=== PATIENT | female | born 1950 | race Two or more races ===

== ENCOUNTER 2017-07-23 18:00 | Emergency (ER) | payer MEDICARE ==
[~2017-07-23] VITALS: Ht 162.6 cm; Wt 68.0 kg
[2017-07-23 18:15] VITALS: BP 164/78
[2017-07-23] MEDS ORDERED: Ketorolac 30mg Inj IV ONE (18:30)
--- NOTE | 2017-07-23 19:03 | Diagnostic Imaging Report ---
EXAM: XR Lumbar Spine, 2 or 3 Views CLINICAL HISTORY: PAIN TECHNIQUE: Frontal and lateral views of the lumbar spine. COMPARISON: No relevant prior studies available. FINDINGS: Vertebrae: 5 [id number] lumbar vertebral segments. Mild left convex lumbar scoliotic curvature. Grade 1 retrolisthesis of L4 relative to L5 with approximately 6 mm offset. Lumbar vertebral body heights are maintained. Disc spaces: Multilevel degenerative changes with disc space narrowing and endplate osteophytes, most prominent at L4-5. Soft tissues: Unremarkable. IMPRESSION: 1. Mild left convex lumbar scoliotic curvature. 2. Grade 1 retrolisthesis of L4 relative to L5 with approximately 6 mm offset. 3. Multilevel degenerative changes with disc space narrowing and endplate osteophytes, most prominent at L4-5.
--- NOTE | 2017-07-23 19:14 | Emergency Room Report ---
History of Present Illness General Chief Complaint: Back Pain-No Injury Source: Patient Present Illness HPI The patient presents with left-sided pain that started her lower back and radiates down her leg. This began in February. It's worse when she stands up and tries to walk. It's better when she lays down and also sits down. She's been seen in [place] multiple times and given prescriptions for Naprosyn, vitamins and she said antibiotics however she is uncertain about this. She denies any fevers or chills. There is no weakness except that when she has the pain she has difficulty weightbearing on that side. No blood thinners, recent trauma, saddle numbness, incontinence, oncologic problems. She rates the pain 9 /10 when she stands or walks, aching. No imaging has been done. She was going to have imaging, however, this was cancelled after a bowel prep. There was some concern over abnormal LFTs and there was a plan for evaluation of her liver. There has been some constipation. She is reluctant to take medicine for this. She is being treated for hypertension. She denies any recent trauma. When she was taking Naprosyn she started having dyspepsia. No fevers, chest pain, dyspnea, calf pain or swelling. NO NVD, dysuria, rashes , headache. Allergies: Coded Allergies: No Known Allergies (Unverified , 07/23/17) Patient History Past Medical History: see triage record Social History: Denies: smoking, alcohol use Social History Narrative here with family Reviewed Nursing Documentation: PMH: Agreed; PSxH: Agreed Nursing Documentation-PM Past Medical History: No History, Except For Hx Hypertension: Yes Review of Systems All Other Systems: negative except mentioned in HPI Physical Exam Vital Signs Date Time Temp Pulse Resp B/P (MAP) Pulse Ox O2 Delivery O2 Flow Rate FiO2 07/23/17 18:04 98.1 86 16 164/78 98 Room Air 98.1 Sp02 EP Interpretation: reviewed, normal General Appearance: well appearing, no apparent distress, GCS 15 Head: normocephalic Eyes: bilateral eye normal inspection, bilateral eye PERRL ENT: moist mucus membranes Neck: supple Respiratory: lungs clear, normal breath sounds Cardiovascular #1: regular rate, rhythm Cardiovascular #2: 2+ radial (R) Gastrointestinal: normal inspection, normal bowel sounds, non tender, no mass, non-distended Musculoskeletal: gait/station normal - though pain L side with walking and standing, normal range of motion, tender - lumbar area Neurologic: alert, oriented x3, motor strength/tone normal, DTRs symmetric, sensory intact, cerebellar normal, normal gait, speech normal Psychiatric: mood/affect normal Skin: normal inspection, warm/dry Medical Decision Making Diagnostic Impression: Primary Impression: Sciatica Qualified Codes: M54.32 - Sciatica, left side Additional Impressions: Spondylolisthesis at L4-L5 level Degenerative disk disease Qualified Codes: M51.36 - Other intervertebral disc degeneration, lumbar region UTI (urinary tract infection) Qualified Codes: N30.00 - Acute cystitis without hematuria ER Course Patient presents with back pain and left leg pain when she stands that's been ongoing since February and worsening. Differential includes sciatica, UTI, herniated disc, muscle strain amongst others. Evaluation B with lumbar sacral' s spine films, labs and urinalysis. The patient will be treated with Toradol. She will also be treated with Pepcid as she's been having increased dyspepsia after taking Naprosyn. Labs remarkable for pyuria. Xrays as recorded below with DJD and spondylolisthesis. Elevated ESR and alk phos. Treated with rocephin in ED. Improved with treatment. Discussed findings and treatment plan. Patient stable for outpatient observation and treatment. Laboratory Tests Test 07/23/17 18:35 White Blood Count 8.1 K/UL (4.8-10.8) Red Blood Count 4.52 M/UL (4.20-5.40) Hemoglobin 12.3 G/DL (12.0-16.0) Hematocrit 38.4 % (37.0-47.0) Mean Corpuscular Volume 85 FL (80-99) Mean Corpuscular Hemoglobin 27.2 PG (27.0-31.0) Mean Corpuscular Hemoglobin Concent 32.0 G/DL (32.0-36.0) Red Cell Distribution Width 12.4 % (11.6-14.8) Platelet Count 146 K/UL (150-450) L Mean Platelet Volume 13.0 FL (6.5-10.1) H Neutrophils (%) (Auto) 60.3 % (45.0-75.0) Lymphocytes (%) (Auto) 26.7 % (20.0-45.0) Monocytes (%) (Auto) 7.9 % (1.0-10.0) Eosinophils (%) (Auto) 4.2 % (0.0-3.0) H Basophils (%) (Auto) 1.0 % (0.0-2.0) Erythrocyte Sedimentation Rate 51 MM/HR (0-30) H Prothrombin Time 9.7 SEC (9.30-11.50) Prothrombin Time INR 0.9 (0.9-1.1) PTT 25 SEC (23-33) Urine Color [place] Urine Appearance Slightly cloudy Urine pH 6 (4.5-8.0) Urine Specific [place] 1.015 (1.005-1.035) Urine Protein 3+ (NEGATIVE) H Urine Glucose (UA) Negative (NEGATIVE) Urine Ketones Negative (NEGATIVE) Urine Occult Blood 1+ (NEGATIVE) H Urine Nitrite Positive (NEGATIVE) H Urine Bilirubin Negative (NEGATIVE) Urine Ictotest Negative Urine Urobilinogen Normal MG/DL (0.0-1.0) Urine Leukocyte Esterase 3+ (NEGATIVE) H Urine RBC 2-4 /HPF (0 - 2) H Urine WBC 30-40 /HPF (0 - 2) H Urine Squamous Epithelial Cells Moderate /LPF (NONE/OCC) H Urine Bacteria Many /HPF (NONE) H Sodium Level 139 MMOL/L (136-145) Potassium Level 3.7 MMOL/L (3.5-5.1) Chloride Level 104 MMOL/L (98-107) Carbon Dioxide Level 25 MMOL/L (21-32) Anion Gap 10 mmol/L (5-15) Blood Urea Nitrogen 19 mg/dL (7-18) H Creatinine 0.8 MG/DL (0.55-1.30) Estimate Glomerular Filtration Rate > 60 mL/min (>60) Glucose Level 109 MG/DL (74-106) H Calcium Level 8.9 MG/DL (8.5-10.1) Total Bilirubin 0.4 MG/DL (0.2-1.0) Aspartate Amino Transferase (AST) 26 U/L (15-37) Alanine Aminotransferase (ALT) 33 U/L (12-78) Alkaline Phosphatase 137 U/L (46-116) H C-Reactive Protein, Quantitative < 0.4 mg/dL (0.00-0.90) Total Protein 7.9 G/DL (6.4-8.2) Albumin 3.7 G/DL (3.4-5.0) Globulin 4.2 g/dL Albumin/Globulin Ratio 0.9 (1.0-2.7) L Other X-Ray Diagnostic Results Other X-Ray Diagnostic Results : X-Ray ordered: ls spine # of Views/Limited Vs Complete: 3 View Indication: Pain EP Interpretation: Yes Interpretation: no soft tissue swelling, no fractures, other - djd and spondylolysthesis Impression: Other Electronically Signed by: Electronically signed by Jareth Moreno MD Last Vital Signs Date Time Temp Pulse Resp B/P (MAP) Pulse Ox O2 Delivery O2 Flow Rate FiO2 07/23/17 21:49 98.1 85 16 164/78 98 Room Air 208.6 Status: improved Disposition: HOME, SELF-CARE Condition: Improved Scripts Famotidine (PEPCID AC) 20 Mg Tablet 20 MG PO DAILY PRN for to protect your stomach, #20 TAB Prov: Jareth Moreno M.D. 07/23/17 Ibuprofen* (MOTRIN*) 600 Mg Tablet 600 MG ORAL Q6H PRN for For Pain, #20 TAB Prov: Jareth Moreno M.D. 07/23/17 Nitrofurantoin Monohyd/M-Cryst* (MACROBID 100 MG*) 100 Mg Capsule 100 MG ORAL EVERY 12 HOURS, #14 CAP Prov: Jareth Moreno M.D. 07/23/17 Jareth Moreno M.D. July 23, 2017 19:14
[2017-07-23 19:48] LABS: APPEARANCE,URINE SLIGHTLY CLOUDY; BILIRUBIN, URINE NEGATIVE (NEGATIVE); COLOR,URINE AMBER; GLUCOSE, URINE (UA) NEGATIVE (NEGATIVE); KETONES,URINE NEGATIVE (NEGATIVE); LEUKOCYTE ESTERASE ,URINE 3+ (NEGATIVE); NITRITE,URINE POSITIVE (NEGATIVE); PH,URINE 6 (4.5-8.0); PROTEIN,URINE 3+ (NEGATIVE); UROBILINOGEN,URINE NORMAL MG/DL (0.0-1.0)
[2017-07-23 19:52] LABS: EOSINOPHILS % (AUTO) 4.2 % (0.0-3.0); HEMATOCRIT 38.4 % (37.0-47.0); HEMOGLOBIN 12.3 G/DL (12.0-16.0); LYMPHOCYTES % (AUTO) 26.7 % (20.0-45.0); MEAN CORPUSCULAR VOLUME 85 FL (80-99); MONOCYTES % (AUTO) 7.9 % (1.0-10.0); NEUTROPHILS % (AUTO) 60.3 % (45.0-75.0); PLATELET COUNT 146 K/UL (150-450); RED BLOOD COUNT 4.52 M/UL (4.20-5.40); RED CELL DISTRIBUTION WIDTH 12.4 % (11.6-14.8); WHITE BLOOD COUNT 8.1 K/UL (4.8-10.8)
[2017-07-23 19:55] LABS: ANION GAP 10 mmol/L (5-15); BLOOD UREA NITROGEN 19 mg/dL (7-18); CALCIUM 8.9 MG/DL (8.5-10.1); CARBON DIOXIDE 25 MMOL/L (21-32); CHLORIDE 104 MMOL/L (98-107); CREATININE 0.8 MG/DL (0.55-1.30); POTASSIUM 3.7 MMOL/L (3.5-5.1); SODIUM 139 MMOL/L (136-145)
[2017-07-23 19:58] LABS: ALANINE AMINOTRANSFERASE 33 U/L (12-78); ALBUMIN 3.7 G/DL (3.4-5.0); ALBUMIN/GLOBULIN RATIO 0.9 (1.0-2.7); ALKALINE PHOSPHATASE 137 U/L (46-116); ASPARTATE AMINO TRANSFERASE 26 U/L (15-37); BILIRUBIN,TOTAL 0.4 MG/DL (0.2-1.0); INR 0.9 (0.9-1.1)
[2017-07-23] MEDS ORDERED: cefTRIAXone 1 GM in NS 55 ML IVPB ONE (20:30)
[2017-07-23] MEDS ORDERED: IBUPROFEN600 MG ORAL (21:35)
[2017-07-23] MEDS ORDERED: PEPCID AC20 M2 PO (21:35)
[2017-07-23] MEDS ORDERED: NITROFURANTOIN100 M2 ORAL (21:35)
[2017-07-23 21:49] VITALS: BP 164/78
== END 2017-07-23 21:50 | disposition home or self-care (01) ==
LOC: EMR 18:45
DX: M54.32 Sciatica, left side (principal); M51.36 Other intervertebral disc degeneration, lumbar region; N30.00 Acute cystitis without hematuria; I10 Essential (primary) hypertension; K59.00 Constipation, unspecified
CPT/HCPCS: 36415; 72020; 80053; 81001; 85025; 85610; 85651; 85730; 86140; 87086; 87181; 96374; 96375; 99284; J0696; J1885; S0028